=== PATIENT | male | born 1975 | race Caucasian/White ===

== ENCOUNTER 2018-05-06 11:02 | Day surgery (SDC) | payer SELFPAY ==
[2018-05-06] MEDS ORDERED: Morphine VIAL* 4 MG/ML VIAL (1 ml vial) IV ONE (11:14)
--- NOTE | 2018-05-06 12:16 | RAD ---
INDICATION: Right shoulder pain after a fall COMPARISON: None. TECHNIQUE: 2 views of the right shoulder were obtained. FINDINGS: The right humeral head is displaced anteriorly and inferiorly relative to the bony glenoid labrum. The visualized bones appear to be cortically intact. IMPRESSION: DISLOCATION OF THE RIGHT GLENOHUMERAL JOINT WITHOUT RADIOGRAPHICALLY APPARENT FRACTURE.
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
[2018-05-06] MEDS ORDERED: Ondansetron INJ* 2 MG/ML VIAL IV ONE (13:12)
[2018-05-06] MEDS ORDERED: Etomidate* 2 MG/ML 10 ML VIAL IV ONE (13:12)
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
[2018-05-06] MEDS ORDERED: Propofol* 10 MG/ML 20 ML BTL IV PUSH ONE (14:18)
[2018-05-06] MEDS ORDERED: Ondansetron INJ* 2 MG/ML VIAL ONE (14:18)
[2018-05-06] MEDS ORDERED: Midazolam* 1 MG/ML 2 ML VIAL (2 MG) ONE (14:18)
[2018-05-06] MEDS ORDERED: Lidocaine 2% PF * 5 ML VIAL ONE (14:18)
[2018-05-06] MEDS ORDERED: Succinylcholine* 20 MG/ML 10 ML VIAL ONE (14:18)
[2018-05-06] MEDS ORDERED: fentaNYL* 50 MCG/ML 2 ML VIAL (100 MCG VIAL) ONE (14:18)
[2018-05-06] MEDS ORDERED: oxyCODONE/Acetamin 5/325 MG* TAB PO PRN (15:35)
[2018-05-06] MEDS ORDERED: fentaNYL* 50 MCG/ML 2 ML VIAL (100 MCG VIAL) IV PRN (15:35)
[2018-05-06] MEDS ORDERED: Naloxone* 0.4 MG/ML 1 ML VIAL IV PRN (15:35)
[2018-05-06] MEDS ORDERED: Ondansetron INJ* 2 MG/ML VIAL IV PRN (15:35)
--- NOTE | 2018-05-06 16:07 | RAD ---
CPT II Codes: G9500 INDICATION: Dislocated right shoulder TECHNIQUE: Intraoperative fluoroscopy was provided during reduction of dislocated right shoulder. FINDINGS: A single AP spot film depicts a shoulder that appears to be anatomically aligned. It is unclear whether this is the right or left shoulder. Fluoroscopy time: 4.3 seconds IMPRESSION: As above.
[2018-05-06 16:19] VITALS: BP 147/87
--- NOTE | 2018-05-06 20:38 | OP ---
DATE OF OPERATION: 05/06/18 - SDS DATE OF : 75 ATTENDING SURGEON: Leonardo Page MD PRE-OP DIAGNOSIS: Acute right glenohumeral dislocation. POST-OP DIAGNOSIS: Acute right glenohumeral dislocation. OPERATIVE PROCEDURE: Closed reduction, right shoulder dislocation. DESCRIPTION OF PROCEDURE: The patient was taken to the operating room with propofol administered with abduction and external rotation. I pushed firmly directly against the proximal humerus and the humeral head, pushing them away from the center line of the body. After multiple attempts, we did achieve a palpable and audible reduction and then free adduction of the arm to the opposite shoulder. The AP view from the C-arm showed the humeral head in line with the glenoid. We then immobilized in a sling again with the hand across the chest, and awoke the patient from anesthesia. [id number]/CPS #: [id number] MTDD
== END 2018-05-06 16:20 | disposition home or self-care (01) ==
LOC: ED 11:02 → OR 14:38
PROVIDERS: ATTEND Orthopaedic Surgery
DX: S43.014A Anterior dislocation of right humerus, initial encounter (principal); V86.56XA Driver of dirt bike or motor/cross bike injured in nontraffic accident, initial encounter; Y93.89 Activity, other specified; Y92.89 Other specified places as the place of occurrence of the external cause; G47.33 Obstructive sleep apnea (adult) (pediatric); F32.9 Major depressive disorder, single episode, unspecified
CPT/HCPCS: 76000; 99283; J0330; J2250; J2270; J2405; J2704; J3010